=== PATIENT | male | born 1955 | race Two or more races ===

== ENCOUNTER 2025-03-02 13:53 | Outpatient (REF) | payer MEDICAID, SELFPAY ==
[2025-03-02 14:11] LABS: Abs Immature Grans 0.01 10^3/uL (0.0-0.06); HCT 37.6 % (40.0-50.0); HGB 12.6 g/dL (13.5-17.5); Immature Grans % 0.1 %; MCH 29.6 pg (27.0-33.0); MCHC 33.5 % (32.0-36.0); MCV 89 fL (80-95); MPV 9.5 fL (8.0-11.0); Platelet Count 262 10^3/uL (130-400); RBC 4.25 10^6/uL (4.36-5.78); RDW 13.1 % (11.8-14.1); RDW-SD 42.5 fL; WBC 6.87 10^3/uL (4.4-10.8)
[2025-03-02 14:30] LABS: ALT 23 U/L (16-63); AST 21 U/L (15-37); Albumin 3.7 g/dL (3.4-5.0); Alkaline Phosphatase 102 U/L (46-116); Anion Gap 8.5 mmol/L (3-11); BUN 13 mg/dL (7-18); Bilirubin, Total 0.2 mg/dL (0.2-1.0); CO2 27.5 mmol/L (21.0-32.0); Calcium 9.0 mg/dL (8.5-10.1); Chloride 98 mmol/L (98-107); Estimated GFR 81.47 (mL/min/1.73m2); Glucose 81 mg/dL (74-106); Magnesium 1.9 mg/dL (1.8-2.4); Potassium 3.7 mmol/L (3.5-5.1); Sodium 134 mmol/L (136-145); TSH 0.92 uIU/mL (0.36-3.74); Total Protein 7.7 g/dL (6.4-8.2)
== END 2025-03-02 13:54 | disposition home or self-care (01) ==
LOC: LBO 13:53
PROVIDERS: Visit Provider Nurse Practitioner
DX: C7B.1 Secondary Merkel cell carcinoma (principal); Z79.899 Other long term (current) drug therapy
CPT/HCPCS: 80053; 83735; 84439; 84443; 85025